=== PATIENT | male | born 1990 | race Caucasian/White ===

== ENCOUNTER 2017-05-08 16:23 | Inpatient (IN) | payer SELFPAY ==
[~2017-05-08] VITALS: Ht 175.3 cm; Wt 101.8 kg
[~2017-05-08 16:23] MED LIST: LEVE10006 PO; LORA-250 PO
[2017-05-08] MEDS ORDERED: ACETAMINOPHEN 325MG TABLET PO STA (17:09)
[2017-05-08] MEDS ORDERED: ONDANSETRON HCL 4MG/2ML VIAL IV STA (17:09)
[2017-05-08] MEDS ORDERED: SODIUM CHLORIDE 0.9% 1000ML BAG (SEPSIS BOLUS) IV ONE (17:15)
[2017-05-08 18:01] LABS: HEMATOCRIT. 41.4 % (42.0-52.0); HEMOGLOBIN. 13.8 g/dL (14.0-18.0); MEAN CORPUSCULAR HEMOGLOBIN 30.1 pg (28.0-32.0); MEAN CORPUSCULAR VOLUME 90.2 fL (80.0-94.0); MEAN PLATELET VOLUME 7.5 fl (7.4-10.4); PLATELET 271 x1000/uL (130-400); RED BLOOD CELL COUNT 4.59 mill/uL (4.7-6.1)
[2017-05-08 18:09] LABS: CHLORIDE 104 mEq/L (98-107)
[2017-05-08 18:18] LABS: CARBON DIOXIDE 28 mEq/L (21-32)
[2017-05-08 18:29] LABS: ATYPICAL LYMPHOCYTES 2
[2017-05-08 18:30] LABS: PLATELET ESTIMATE NORMAL
[2017-05-08] MEDS: ONDANSETRON HCL 4MG/2ML VIAL IV NR ×2 (20:51→22:14)
[2017-05-09] VITALS (7 sets, daily range): BP systolic 104–143; BP diastolic 50–77
[2017-05-09] MEDS ORDERED: ACETAMINOPHEN 650MG/20.3ML UDC GT PRN (01:00)
[2017-05-09] MEDS ORDERED: HYDROCODONE/ACETAMINOPHEN 10/325MG TABLET PO PRN (01:00)
[2017-05-09] MEDS ORDERED: NA PHOS,M-B/NA PHOS,DI-BA ENEMA 118ML PR PRN (01:00)
[2017-05-09] MEDS ORDERED: DIPHENHYDRAMINE 50MG/ML VIAL IV PRN (01:00)
[2017-05-09] MEDS ORDERED: ACETAMINOPHEN 650MG SUPP PR PRN (01:00)
[2017-05-09] MEDS ORDERED: DOCUSATE SODIUM 100MG CAPSULE PO PRN (01:00)
[2017-05-09] MEDS ORDERED: IPRATROPIUM/ALBUTEROL 0.5-3(2.5)MG/3ML NEB INH PRN (01:00)
[2017-05-09] MEDS ORDERED: MAGNESIUM/ALUMINUM HYDROXIDE/SIMETHICONE 30ML UDC PO PRN (01:00)
[2017-05-09] MEDS ORDERED: CLONIDINE 0.1MG TABLET PO PRN (01:00)
[2017-05-09] MEDS: GUAIFENESIN 200MG/10ML SUGAR FREE UDC PO PRN ×3 (02:48→20:38)
[2017-05-09] MEDS: ACETAMINOPHEN 325MG TABLET PO PRN ×2 (02:48→20:42)
[2017-05-09] MEDS: SODIUM CHLORIDE 0.45% 1,000 ML IV SCH ×2 (03:10→16:18)
[2017-05-09] MEDS: LEVETIRACETAM 500MG PREMIX 100 ML IV SCH ×2 (05:28→16:37)
[2017-05-09] MEDS: SODIUM CHLORIDE 0.9% INJ 3ML FLUSH IVF SCH ×3 (05:29→21:16)
[2017-05-09 07:47] LABS: KETONES URINE 1+ (NEGATIVE); LEUKOCYTE ESTERASE URINE NEGATIVE (NEGATIVE); NITRITE URINE NEGATIVE (NEGATIVE); OCCULT BLOOD URINE NEGATIVE (NEGATIVE); PROTEIN URINE NEGATIVE (NEGATIVE); SPECIFIC GRAVITY URINE 1.014 (1.005-1.030)
[2017-05-09 07:48] LABS: CLARITY URINE CLEAR (CLEAR); COLOR URINE YELLOW (YELLOW)
[2017-05-09] MEDS: ONDANSETRON HCL 4MG/2ML VIAL IV PRN ×2 (08:16→22:07)
[2017-05-09] MEDS: ENOXAPARIN 40MG/0.4ML SYR SUBCUT SCH (08:17)
[2017-05-09 09:18] LABS: *AMPHETAMINES SCREEN URINE NEGATIVE (NEGATIVE); *BARBITURATES SCREEN URINE NEGATIVE (NEGATIVE); *BENZODIAZEPINES SCREEN URINE NEGATIVE (NEGATIVE); *COCAINE SCREEN URINE NEGATIVE (NEGATIVE); CANNABINOID URINE SCREEN NEGATIVE (NEGATIVE); METHADONE URINE SCREEN NEGATIVE (NEGATIVE); OPIATES URINE SCREEN NEGATIVE (NEGATIVE); PHENCYCLIDINE URINE SCREEN NEGATIVE (NEGATIVE)
[2017-05-10] VITALS: BP 116/60
[2017-05-10 04:00] VITALS: BP 104/59
[2017-05-10] MEDS: LEVETIRACETAM 500MG PREMIX 100 ML IV SCH (05:05)
[2017-05-10] MEDS: SODIUM CHLORIDE 0.45% 1,000 ML IV SCH (05:05)
[2017-05-10] MEDS: SODIUM CHLORIDE 0.9% INJ 3ML FLUSH IVF SCH (07:10)
[2017-05-10 08:00] VITALS: BP 117/59
[2017-05-10 09:22] LABS: HEMATOCRIT. 42.4 % (42.0-52.0); HEMOGLOBIN. 14.1 g/dL (14.0-18.0); MEAN CORPUSCULAR HEMOGLOBIN 30.3 pg (28.0-32.0); MEAN PLATELET VOLUME 7.6 fl (7.4-10.4); PLATELET 247 x1000/uL (130-400); RED BLOOD CELL COUNT 4.66 mill/uL (4.7-6.1); RED CELL DISTRIBUTION WIDTH 13.2 % (11.6-14.6)
[2017-05-10] MEDS: ENOXAPARIN 40MG/0.4ML SYR SUBCUT SCH (09:26)
[2017-05-10] MEDS: ONDANSETRON HCL 4MG/2ML VIAL IV PRN (09:31)
[2017-05-10 09:40] LABS: CARBON DIOXIDE 27 mEq/L (21-32); CHLORIDE 108 mEq/L (98-107); HDL CHOLESTEROL 25 mg/dL (40-59); LDL CHOLESTEROL 115 mg/dL (5-100)
[2017-05-10] MEDS ORDERED: AZITHROMYCIN 500 MG TABLET PO SCH (10:00)
[2017-05-10] MEDS ORDERED: FLUTICASONE PROPIONATE 50MCG/SPRAY BOTTLE BOTHNSTRLS SCH (10:00)
[2017-05-10 12:00] VITALS: BP 100/51
[2017-05-10 14:39] LABS: PLATELET ESTIMATE NORMAL
[2017-05-10] MEDS ORDERED: AZIT500T3 PO (16:30)
[2017-05-10] MEDS ORDERED: FLUT9.9S NS (16:37)
[2017-05-10] MEDS ORDERED: LEVETIRACETAM 500MG PREMIX 100 ML IV SCH (16:45)
[2017-05-10 17:00] VITALS: BP 117/75
[2017-05-10 17:47] VITALS: BP 117/72
== END 2017-05-10 18:05 | disposition home or self-care (01) | DRG 53 ==
LOC: ER 16:33 → 5WST 21:21
PROVIDERS: ADMIT Family Medicine; ATTEND Family Medicine
DX: G40.409 Other generalized epilepsy and epileptic syndromes, not intractable, without status epilepticus (principal); E86.0 Dehydration; Z79.899 Other long term (current) drug therapy
CPT/HCPCS: 36415; 71010; 80053; 80061; 80305; 81003; 83605; 83690; 85025; 87040; 87086; 87804; 96361; 96374; 96375; 99291; J1650; J1953; J2405; J7030

== ENCOUNTER 2017-05-10 18:48 | Inpatient (IN) | payer SELFPAY ==
[~2017-05-10] VITALS: Ht 175.3 cm; Wt 80.7 kg
[~2017-05-10 18:48] MED LIST changes: +AZIT500T3 PO; +FLUT9.9S NS
[2017-05-10] MEDS ORDERED: MORPHINE SULFATE 4 MG/ML CPJ (NOT FOR IM USE) IV STA (19:21)
[2017-05-10] MEDS ORDERED: SODIUM CHLORIDE 0.9% 1,000 ML IV ONE (19:21)
[2017-05-10] MEDS ORDERED: ONDANSETRON HCL 4MG/2ML VIAL IV STA (19:21)
[2017-05-10 19:52] LABS: BASOPHILS % 0.7 % (0.0-2.0); EOSINOPHILS % 1.5 % (0.0-5.0); HEMATOCRIT. 45.3 % (42.0-52.0); HEMOGLOBIN. 15.2 g/dL (14.0-18.0); LYMPHOCYTES % 28.5 % (20.0-50.0); MEAN CORPUSCULAR HEMOGLOBIN 30.1 pg (28.0-32.0); MEAN CORPUSCULAR VOLUME 90.1 fL (80.0-94.0); MEAN PLATELET VOLUME 7.5 fl (7.4-10.4); MONOCYTES % 14.7 % (2.0-8.0); NEUTROPHILS % 54.6 % (40.0-76.0); PLATELET 276 x1000/uL (130-400); RED BLOOD CELL COUNT 5.03 mill/uL (4.7-6.1); RED CELL DISTRIBUTION WIDTH 13.3 % (11.6-14.6)
[2017-05-10 20:02] LABS: CARBON DIOXIDE 26 mEq/L (21-32); CHLORIDE 107 mEq/L (98-107)
[2017-05-10] MEDS ORDERED: IOHEXOL-300 100 ML BOTTLE ONE (23:58)
[2017-05-11 00:29] VITALS: BP 114/80
[2017-05-11] MEDS ORDERED: LORAZEPAM 2MG/ML CPJ IV PRN (02:45)
[2017-05-11 04:00] VITALS: BP 107/55
[2017-05-11 07:41] VITALS: BP 105/57
[2017-05-11 11:57] VITALS: BP 106/60
[2017-05-11] MEDS ORDERED: LEVETIRACETAM 500MG/5ML CUP PO NR (12:15)
[2017-05-11] MEDS: AZITHROMYCIN 500 MG TABLET PO SCH (15:44)
[2017-05-11 16:00] VITALS: BP 111/55
[2017-05-11 19:51] VITALS: BP 106/56
[2017-05-11] MEDS: LEVETIRACETAM 500MG/5ML CUP PO SCH (20:50)
[2017-05-12] VITALS: BP 106/54
[2017-05-12 04:00] VITALS: BP 104/55
[2017-05-12 07:55] VITALS: BP 109/60
[2017-05-12] MEDS: AZITHROMYCIN 500 MG TABLET PO SCH (09:08)
[2017-05-12] MEDS: LEVETIRACETAM 500MG/5ML CUP PO SCH (09:08)
[2017-05-12 12:00] VITALS: BP 113/62
[2017-05-12 13:59] VITALS: BP 132/62
== END 2017-05-12 15:10 | disposition home or self-care (01) | DRG 53 ==
LOC: ER 20:09 → 8WST 22:19 → EDBEDREQTM 22:24 → EDBEDREQ 22:24 → ENRESERV 22:32
PROVIDERS: ADMIT Internal Medicine; ATTEND Internal Medicine
DX: G40.409 Other generalized epilepsy and epileptic syndromes, not intractable, without status epilepticus (principal); K50.90 Crohn's disease, unspecified, without complications; J06.9 Acute upper respiratory infection, unspecified; K42.9 Umbilical hernia without obstruction or gangrene; N20.0 Calculus of kidney; R32 Unspecified urinary incontinence; Z79.2 Long term (current) use of antibiotics; Z79.899 Other long term (current) drug therapy
CPT/HCPCS: 36415; 70450; 71046; 74177; 80053; 83605; 85025; 87804; 96361; 96374; 96375; 99285; J2270; J2405; J7030; Q9967